=== PATIENT | female | born 1995 | race Caucasian/White ===

== ENCOUNTER 2020-07-27 09:03 | Emergency (ER) | payer BC, OTHER ==
[~2020-07-27] VITALS: Ht 157.5 cm; Wt 117.9 kg
[2020-07-27] MEDS ORDERED: LIDOCAINE VISCUS 2% 15 ML UDC MM ONE (09:30)
[2020-07-27] MEDS ORDERED: MAG HYDROX/AL HYDROX/SIMETH 30 ML LIQUID UDC PO ONE (09:30)
[2020-07-27] MEDS ORDERED: ONDANSETRON ODT 4 MG TAB.RAPDIS SL ONE (09:30)
[2020-07-27] MEDS ORDERED: FAMOTIDINE 20 MG TABLET PO ONE (09:30)
--- NOTE | 2020-07-27 09:37 | NUR ---
PT declined to have meds, lab work, and EKG in ER, stating will follow up w/ primary MD. Dr Kelley made aware.
[2020-07-27 09:45] VITALS: BP 119/77
--- NOTE | 2020-07-27 09:47 | NUR ---
Patient discharged to home in stable condition. Written and verbal after care instructions given. Patient verbalizes understanding of instructions. Stressed follow up or return to ER for worsening s/s.
== END 2020-07-27 09:47 | disposition home or self-care (01) ==
LOC: ER 09:03
DX: R11.0 Nausea (principal); E66.9 Obesity, unspecified; Z68.42 Body mass index [BMI] 45.0-49.9, adult
CPT/HCPCS: A4663